=== PATIENT | female | born 1990 | race Caucasian/White ===

== ENCOUNTER 2020-09-03 20:10 | Emergency (ER) | payer MEDICAID, OTHER ==
[2020-09-03] MEDS ORDERED: Ondansetron 4 MG/2 ML SDV IVPUSH ONE (20:29)
[2020-09-03] MEDS ORDERED: Sodium Chloride 0.9% 2.5 ML Syringe FLUSH PRN (20:29)
[2020-09-03] MEDS ORDERED: Sodium Chloride 0.9% 1,000 ML IV ONE (20:29)
[2020-09-03] MEDS ORDERED: Sodium Chloride 0.9% 10 ML Syringe FLUSH PRN (20:29)
--- NOTE | 2020-09-03 20:31 | EDM.PDOC ---
ED HPI GENERAL MEDICAL PROBLEM - General Chief Complaint: General Stated Complaint: DIZZINESS, PASSED OUT Time Seen by Provider: 09/03/20 20:12 Source of Information: Reports: Patient History Limitations: Reports: No Limitations - History of Present Illness INITIAL COMMENTS - FREE TEXT/NARRATIVE: HISTORY AND PHYSICAL: History of present illness: The patient is a 30-year-old female who presents to the emergency room after near syncopal event while taking a shower with her . The patient's states that she had felt normal and had been in the shower for about 15 minutes when her joined her. Her states that she did not lose consciousness but was not acting correctly in the shower. Patient stated that a similar incident happened about 10 days ago and about 10 days before that. She has not sought any medical treatment for it. She states that during the episode she felt extremely hot and became nauseated. She did not vomit. She does have a slight headache but reports that this is a normal headache for her. The patient states that she often gets headaches and has never sought treatment for them. She uses [id number]-[id number] Motrin or Tylenol for her pain. Patient states that she had to 8 ounce bottles of some type of mixed drink over 2 hours about 1 hour prior to her incident. And right before her taking a shower she had a cheeseburger for dinner. The patient states that there is no way she could be because her has a vasectomy. Her last menstrual cycle was July 16, 2020. Patient denies any fever, chills, change in vision. Denies any chest pain, back pain, shortness of breath or cough. Denies any abdominal pain, vomiting, diarrhea, constipation or dysuria. Has not noted any blood in urine or stool. Patient has been eating and drinking appropriately. Review of systems: As per history of present illness and below otherwise all systems reviewed and negative. Past medical history: As per history of present illness and as reviewed below otherwise noncontributory. Surgical history: As per history of present illness and as reviewed below otherwise noncontributory. Social history: See social history for further information Family history: As per history of present illness and as reviewed below otherwise noncontributory. Physical exam: General: Well developed and well nourished. Alert and orientated x 3. Nontoxic in appearance and in no acute distress. Vital signs are stable and have been reviewed by me. Nursing notes were reviewed. HEENT: Atraumatic, normocephalic, pupils equal and reactive bilaterally, negative for conjunctival pallor or scleral icterus, mucous membranes moist, TMs normal bilaterally, throat clear, neck supple, nontender, trachea midline. No drooling or trismus noted. No meningeal signs. No hot potato voice noted. Lungs: Clear to auscultation bilaterally. No wheezes, rales, or rhonchi. Chest nontender. Normal work of breathing, no accessory muscles used. Heart: S1S2, regular rate and rhythm without overt murmur, gallops, or rubs. No JVD. No peripheral edema Abdomen: Soft, nondistended, nontender. Normoactive bowel sounds. Negative for masses or costovertebral tenderness. Pelvis: Stable nontender. Genitourinary/Rectal: Deferred. Skin: Intact, warm, dry. No lesions or rashes noted. Hematologic: No petechiae or purpra. Mucosa appropriate color and normal nail bed color and refill. Extremities: Atraumatic, moves all extremities per self without difficulty or deficits, negative for cords or calf pain. Neurovascular unremarkable. Neuro: Awake, alert, oriented. Cranial nerves II through XII unremarkable. Cerebellum unremarkable. Motor and sensory unremarkable throughout. Exam nonfocal. Psychiatric: Mood and affect are appropriate. Normal thought process. Answering questions appropriately. Notes: *This patient was seen and evaluated during the 2019 SARS-CoV-2 novel coronavirus pandemic period. Community viral transmission is ongoing at time of this encounter and the emergency department is operating under pandemic response procedures. After evaluation and discussion the patient is agreeable to blood work, urinalysis, EKG, chest x-ray, head CT, IV fluids, and Zofran. The CBC is unremarkable. The CMP is unremarkable except for calcium of 8.4. The urine is unremarkable. Chest x-ray IMPRESSION: No evidence of acute pulmonary abnormalities. Head CT IMPRESSION: No acute intracranial hemorrhage or mass effect. The patient's work-up is essentially normal. Due to the fact that the patient's had 3 near syncopal episodes and 30 days I will write a order for the patient to have a [facility] patient tomorrow for 14 days with the results to go to her provider Nima Davila. The patient is agreeable with the discharge plan. I have talked with the patient about today's findings, in addition to providing specific details for plan of care. Reassessment at the time of disposition demonstrates that the patient is in no acute distress. The patient is stable for discharge, counseling was provided and we discussed in great detail signs and symptoms that would prompt them to return to the Emergency Department. Medication, follow up and supportive care measures were reviewed and discussed. Voices understanding and is agreeable to plan of care. Denies any further questions or concerns at this time. Diagnostics: CBC, CMP, EKG, chest x-ray, urinalysis, head CT, Therapeutics: IV Fluids, Zofran Prescription: ZIZIO for 14 days for near syncopal episodes. Results to Dr. Lupillo Davila. Impression: Near syncope Plan: 1. You were evaluated today on an emergent basis. Your episode of near fainting was evaluated by blood work which was normal, a urinalysis which was within normal limits, and EKG which was normal, a chest x-ray which was normal, a head CT which was normal. Due to the fact that you have had 3 of these episodes within the last 30 days I am writing an outpatient order for you to have a monitor for 14 days with the results to go to your provider Lupillo Davila. If you have another episode please return to the emergency department. At this time it is best for you to have people with you at all times. 2. You can alternate Tylenol and ibuprofen as needed for pain and fever management. 3. We encourage you to follow up with your primary care provider and/or recommended specialist in the next few days for re-evaluation and further care/management. 4. If your symptoms should worsen, new symptoms develop or any of the signs and symptoms we discussed should arise please return to the emergency room or call 911 (if needed). Definitive disposition and diagnosis as appropriate pending reevaluation and review of above. - Related Data Allergies Allergy/AdvReac Type Severity Reaction Status Date / Time No Known Allergies Allergy Verified 09/03/20 20:22 Home Meds: Home Meds Omeprazole 40 mg PO DAILY 09/03/20 [History] ED ROS GENERAL - Review of Systems Review Of Systems: Comprehensive ROS is negative, except as noted in HPI. ED EXAM, GENERAL - Physical Exam Exam: See Below (See dictation) Course - Vital Signs Last Recorded V/S: Last Vital Signs Temp 97.2 F 09/03/20 22:04 Pulse 62 09/03/20 22:04 Resp 18 09/03/20 22:04 BP 105/66 09/03/20 22:04 Pulse Ox 97 09/03/20 22:04 - Orders/Labs/Meds Orders: Active Orders 24 hr Category Date Time Status Saline Lock Insert [OM.PC] Stat Oth 09/03/20 20:29 Ordered Labs: Laboratory Tests 09/03/20 09/03/20 09/03/20 Range/Units 20:30 20:30 20:35 WBC 8.29 (4.0-11.0) K/uL RBC 4.67 (4.30-5.90) M/uL Hgb 14.4 (12.0-16.0) g/dL Hct 43.2 (36.0-46.0) % MCV 92.5 (80.0-98.0) fL MCH 30.8 (27.0-32.0) pg MCHC 33.3 (31.0-37.0) g/dL RDW Std Deviation 42.1 (28.0-62.0) fl RDW Coeff of Luis Alfredo 13 (11.0-15.0) % Plt Count 273 (150-400) K/uL MPV 10.00 (7.40-12.00) fL Neut % (Auto) 48.5 (48.0-80.0) % Lymph % (Auto) 42.2 H (16.0-40.0) % Rock % (Auto) 5.1 (0.0-15.0) % Eos % (Auto) 3.7 (0.0-7.0) % Baso % (Auto) 0.5 (0.0-1.5) % Neut # (Auto) 4.0 (1.4-5.7) K/uL Lymph # (Auto) 3.5 H (0.6-2.4) K/uL Rock # (Auto) 0.4 (0.0-0.8) K/uL Eos # (Auto) 0.3 (0.0-0.7) K/uL Baso # (Auto) 0.0 (0.0-0.1) K/uL Nucleated RBC % 0.0 /100WBC Nucleated RBCs # 0 K/uL Sodium (136-145) mmol/L Potassium (3.5-5.1) mmol/L Chloride (98-107) mmol/L Carbon Dioxide (21.0-32.0) mmol/L BUN (7.0-18.0) mg/dL Creatinine (0.6-1.0) mg/dL Est Cr Clr Drug Dosing mL/min Estimated GFR (MDRD) ml/min Glucose (74-106) mg/dL Calcium (8.5-10.1) mg/dL Total Bilirubin (0.2-1.0) mg/dL AST (15-37) IU/L ALT (14-63) IU/L Alkaline Phosphatase (46-116) U/L Total Protein (6.4-8.2) g/dL Albumin (3.4-5.0) g/dL Globulin (2.6-4.0) g/dL Albumin/Globulin Ratio (0.9-1.6) Urine Color YELLOW Urine Appearance SLT CLOUDY Urine pH 5.5 (5.0-8.0) Ur Specific [place] >= 1.030 (1.001-1.035) Urine Protein TRACE H (NEGATIVE) mg/dL Urine Glucose (UA) NEGATIVE (NEGATIVE) mg/dL Urine Ketones NEGATIVE (NEGATIVE) mg/dL Urine Occult Blood NEGATIVE (NEGATIVE) Urine Nitrite NEGATIVE (NEGATIVE) Urine Bilirubin NEGATIVE (NEGATIVE) Urine Urobilinogen 0.2 (<2.0) EU/dL Ur Leukocyte Esterase NEGATIVE (NEGATIVE) U Hyaline Cast (Auto) 0-2 (0-2/LPF) Urine RBC 0-2 (0-2/HPF) Urine WBC 0-2 (0-5/HPF) Ur Epithelial Cells FEW (NONE-FEW) Urine Bacteria FEW (NEGATIVE) Urine Mucus LIGHT (NONE-MOD) Urine HCG, Qual NEGATIVE (NEGATIVE) 09/03/20 Range/Units 20:35 WBC (4.0-11.0) K/uL RBC (4.30-5.90) M/uL Hgb (12.0-16.0) g/dL Hct (36.0-46.0) % MCV (80.0-98.0) fL MCH (27.0-32.0) pg MCHC (31.0-37.0) g/dL RDW Std Deviation (28.0-62.0) fl RDW Coeff of Luis Alfredo (11.0-15.0) % Plt Count (150-400) K/uL MPV (7.40-12.00) fL Neut % (Auto) (48.0-80.0) % Lymph % (Auto) (16.0-40.0) % Rock % (Auto) (0.0-15.0) % Eos % (Auto) (0.0-7.0) % Baso % (Auto) (0.0-1.5) % Neut # (Auto) (1.4-5.7) K/uL Lymph # (Auto) (0.6-2.4) K/uL Rock # (Auto) (0.0-0.8) K/uL Eos # (Auto) (0.0-0.7) K/uL Baso # (Auto) (0.0-0.1) K/uL Nucleated RBC % /100WBC Nucleated RBCs # K/uL Sodium 146 H (136-145) mmol/L Potassium 3.6 (3.5-5.1) mmol/L Chloride 106 (98-107) mmol/L Carbon Dioxide 27.7 (21.0-32.0) mmol/L BUN 10 (7.0-18.0) mg/dL Creatinine 0.8 (0.6-1.0) mg/dL Est Cr Clr Drug Dosing 90.84 mL/min Estimated GFR (MDRD) > 60.0 ml/min Glucose 102 (74-106) mg/dL Calcium 8.4 L (8.5-10.1) mg/dL Total Bilirubin 0.2 (0.2-1.0) mg/dL AST 17 (15-37) IU/L ALT 19 (14-63) IU/L Alkaline Phosphatase 61 (46-116) U/L Total Protein 7.6 (6.4-8.2) g/dL Albumin 4.2 (3.4-5.0) g/dL Globulin 3.4 (2.6-4.0) g/dL Albumin/Globulin Ratio 1.2 (0.9-1.6) Urine Color Urine Appearance Urine pH (5.0-8.0) Ur Specific Lowgap (1.001-1.035) Urine Protein (NEGATIVE) mg/dL Urine Glucose (UA) (NEGATIVE) mg/dL Urine Ketones (NEGATIVE) mg/dL Urine Occult Blood (NEGATIVE) Urine Nitrite (NEGATIVE) Urine Bilirubin (NEGATIVE) Urine Urobilinogen (<2.0) EU/dL Ur Leukocyte Esterase (NEGATIVE) U Hyaline Cast (Auto) (0-2/LPF) Urine RBC (0-2/HPF) Urine WBC (0-5/HPF) Ur Epithelial Cells (NONE-FEW) Urine Bacteria (NEGATIVE) Urine Mucus (NONE-MOD) Urine HCG, Qual (NEGATIVE) Meds: Medications Discontinued Medications Generic Name Dose Route Start Last Admin Trade Name Freq PRN Reason Stop Dose Admin Sodium Chloride 1,000 mls @ 999 mls/hr 09/03/20 20:29 09/03/20 20:54 Normal Saline IV 09/03/20 21:29 999 mls/hr .BOLUS ONE Administration Ondansetron HCl 4 mg 09/03/20 20:29 09/03/20 20:54 Ondansetron 4 Mg/2 Ml Sdv IVPUSH 09/03/20 20:30 4 mg ONETIME ONE Administration Sodium Chloride 10 ml 09/03/20 20:29 Sodium Chloride 0.9% 10 Ml Syringe FLUSH ASDIRECTED PRN Keep Vein Open Sodium Chloride 2.5 ml 09/03/20 20:29 Sodium Chloride 0.9% 2.5 Ml Syringe FLUSH ASDIRECTED PRN Keep Vein Open Departure - Departure Time of Disposition: 21:52 Disposition: Home, Self-Care 01 Condition: Good Clinical Impression: Near syncope - Discharge Information *PRESCRIPTION DRUG MONITORING PROGRAM REVIEWED*: Not Applicable *COPY OF PRESCRIPTION DRUG MONITORING REPORT IN PATIENT DOUG: Not Applicable Instructions: Near-Syncope, [id number] Referrals: PCP,Not In Area [Primary Care Provider] - Forms: ED Department Discharge Additional Instructions: The following information is given to patients seen in the emergency department who are being discharged to home. This information is to outline your options for follow-up care. We provide all patients seen in our emergency department with a follow-up referral. The need for follow-up, as well as the timing and circumstances, are variable depending upon the specifics of your emergency department visit. If you don't have a primary care physician on staff, we will provide you with a referral. We always advise you to contact your personal physician following an emergency department visit to inform them of the circumstance of the visit and for follow-up with them and/or the need for any referrals to a consulting specialist. The emergency department will also refer you to a specialist when appropriate. This referral assures that you have the opportunity for follow-up care with a specialist. All of these measure are taken in an effort to provide you with optimal care, which includes your follow-up. Under all circumstances we always encourage you to contact your private physician who remains a resource for coordinating your care. When calling for follow-up care, please make the office aware that this follow-up is from your recent emergency room visit. If for any reason you are refused follow-up, please contact the [facility] Emergency Department at and asked to speak to the emergency department charge nurse. [facility] [address] [place] [address] [place] [address] Plan: 1. You were evaluated today on an emergent basis. Your episode of near fainting was evaluated by blood work which was normal, a urinalysis which was within normal limits, and EKG which was normal, a chest x-ray which was normal, a head CT which was normal. Due to the fact that you have had 3 of these episodes within the last 30 days I am writing an outpatient order for you to have a monitor for 14 days with the results to go to your provider Lupillo Davila. If you have another episode please return to the emergency department. At this time it is best for you to have people with you at all times. 2. You can alternate Tylenol and ibuprofen as needed for pain and fever management. 3. We encourage you to follow up with your primary care provider and/or recommended specialist in the next few days for re-evaluation and further care/management. 4. If your symptoms should worsen, new symptoms develop or any of the signs and symptoms we discussed should arise please return to the emergency room or call 911 (if needed). Sepsis Event Note (ED) - Evaluation Sepsis Screening Result: No Definite Risk - Focused Exam Vital Signs: Vital Signs Temp Pulse Resp BP Pulse Ox 09/03/20 22:04 97.2 F 62 18 105/66 97 09/03/20 21:34 65 18 110/66 100 09/03/20 20:17 97.8 F 76 14 126/65 98 - My Orders Last 24 Hours: My Active Orders 09/03/20 20:29 Saline Lock Insert [OM.PC] Stat - Assessment/Plan Last 24 Hours: My Active Orders 09/03/20 20:29 Saline Lock Insert [OM.PC] Stat
--- NOTE | 2020-09-03 20:47 | PCM.SN.2 ---
- Free Text/Narrative Note: EKG normal sinus rhythm. Heart rate 71. [place] 36. DC interval 123. QT duration 423. QRS normal. ST and T normal. No prior for comparison. Impression normal.
[2020-09-03 21:03] LABS: BLOOD UREA NITROGEN,BUN 10 mg/dL (7.0-18.0); CARBON DIOXIDE,CO2 27.7 mmol/L (21.0-32.0); CHLORIDE,CL 106 mmol/L (98-107); GLUCOSE RANDOM 102 mg/dL (74-106); POTASSIUM,K 3.6 mmol/L (3.5-5.1); SODIUM,NA 146 mmol/L (136-145)
--- NOTE | 2020-09-03 21:43 | CT ---
INDICATION: Near syncope. Chronic headache. TECHNIQUE: Noncontrast CT images were acquired through the brain. COMPARISON: None. FINDINGS: The ventricles and sulci are within normal limits for patient age. No mass effect or midline shift. The askew-white differentiation is maintained. No acute intracranial hemorrhage or pathologic extra-axial fluid collection. The globes are symmetric. The calvarium is intact. The visualized paranasal sinuses and mastoid air cells are clear. IMPRESSION: No acute intracranial hemorrhage or mass effect. Please note that all CT scans at this facility use dose modulation, iterative reconstruction, and/or weight-based dosing when appropriate to reduce radiation dose to as low as reasonably achievable. Dictated by Jose Humphreys MD @ 09/03/2020 9:42:[address] oJse Humphreys @ Sep 03 2020 9:42PM
--- NOTE | 2020-09-03 21:43 | CR ---
INDICATION: Near syncope. FINDINGS: PA and lateral chest x-rays show a normal cardiac silhouette. The lungs show no focal pulmonary opacities. Sharp pleural margins. No pneumothorax. IMPRESSION: No evidence of acute pulmonary abnormalities. Dictated by Kwaku Alonzo MD @ 09/03/2020 9:40:[address] Kwaku Alonzo @ Sep 03 2020 9:40PM
== END 2020-09-03 22:05 | disposition home or self-care (01) ==
LOC: MW.ED 20:10
DX: R55 Syncope and collapse (principal); Z79.899 Other long term (current) drug therapy
CPT/HCPCS: 36415; 70450; 71046; 80053; 81001; 81025; 85025; 93005; 96374; 99284; J2405; J7030; 93010; 99283

== ENCOUNTER → 2022-02-08 | Day surgery (SDC) | payer MEDICAID | LOC: MW.SDS 06:00 | PROVIDERS: ATTEND Surgery | DX: R10.12 Left upper quadrant pain (principal); R10.13 Epigastric pain; Z53.09 Procedure and treatment not carried out because of other contraindication; Z79.899 Other long term (current) drug therapy; Z98.890 Other specified postprocedural states; Z85.3 Personal history of malignant neoplasm of breast | CPT/HCPCS: 81025 ==

== ENCOUNTER 2022-05-06 06:25 | Day surgery (SDC) | payer MEDICAID ==
[~2022-05-06 06:25] MED LIST: Lactated Ringers 1,000 ML IV SCH; cefOXitin 2 GM in Premix Bag 1 BAG IV ONE
[2022-05-06] MEDS ORDERED: Scopolamine 1.5 MG Transdermal Patch TOP ONE (06:30)
[2022-05-06] MEDS ORDERED: Ropivacaine 0.5% 5 MG/ML 30 ML SDV ONE (07:25)
[2022-05-06] MEDS ORDERED: Dexamethasone 4 MG/ML 5 ML MDV ONE (07:29)
[2022-05-06] MEDS ORDERED: Ketorolac 30 MG/ML SDV ONE (07:29)
[2022-05-06] MEDS ORDERED: Sugammadex Sodium 200 MG/2 ML VIAL ONE (07:29)
[2022-05-06] MEDS ORDERED: Rocuronium Bromide 50 MG/5 ML Syringe ONE (07:29)
[2022-05-06] MEDS ORDERED: Ondansetron 4 MG/2 ML SDV ONE (07:29)
[2022-05-06] MEDS ORDERED: Propofol 200 MG/20 ML SDV ONE (07:30)
[2022-05-06] MEDS ORDERED: fentaNYL 100 MCG/2 ML SDV ONE (07:30)
[2022-05-06] MEDS ORDERED: ceFAZolin 1 GM Vial ONE (07:35)
[2022-05-06] MEDS ORDERED: Bupivacaine 0.5% 30 ML SDV ONE (07:35)
[2022-05-06] MEDS ORDERED: Water For Injection, Sterile 20 ML ONE (07:35)
[2022-05-06] MEDS ORDERED: Dexmedetomidine 200 MCG/2 ML SDV ONE (07:35)
[2022-05-06] MEDS ORDERED: fentaNYL 50 MCG/ML SDV IVPUSH PRN (07:51)
[2022-05-06] MEDS ORDERED: Naloxone 0.4 MG/ML SDV IVPUSH PRN (07:51)
[2022-05-06] MEDS ORDERED: Ondansetron 4 MG/2 ML SDV IVPUSH PRN (07:51)
[2022-05-06] MEDS ORDERED: HYDROmorphone 1 MG/ML Syringe IVPUSH PRN (07:51)
[2022-05-06] MEDS ORDERED: Morphine 2 MG/ML SYRINGE IVPUSH PRN (07:51)
[2022-05-06] MEDS ORDERED: Metoclopramide 10 MG/2 ML SDV IVPUSH PRN (07:51)
[2022-05-06] MEDS ORDERED: Albuterol 0.083% 2.5 MG/3 ML Neb Soln NEB PRN (07:51)
[2022-05-06] MEDS ORDERED: propofoL 100 ML ONE (08:04)
[2022-05-06] MEDS ORDERED: Morphine Sulfate 10mg/ml SDV ONE (08:09)
[2022-05-06] MEDS ORDERED: Phenylephrine 1% 10 MG/ML SDV ONE (08:21)
[2022-05-06] MEDS ORDERED: Indocyanine Green 25 MG SDV ONE (08:29)
[2022-05-06] MEDS ORDERED: Acetaminophen/HYDROcodone 325-5 MG Tab PO PRN (09:53)
[2022-05-06] MEDS ORDERED: Morphine 4 MG/ML Syringe IVPUSH PRN (09:53)
[2022-05-06] MEDS ORDERED: Lactated Ringers 1,000 ML IV SCH (10:00)
== END 2022-05-06 11:35 | disposition home or self-care (01) ==
LOC: MW.SDS 06:25
PROVIDERS: ATTEND Surgery
DX: K80.12 Calculus of gallbladder with acute and chronic cholecystitis without obstruction (principal); K21.9 Gastro-esophageal reflux disease without esophagitis; F41.9 Anxiety disorder, unspecified; Z87.891 Personal history of nicotine dependence; Z98.890 Other specified postprocedural states; Z79.899 Other long term (current) drug therapy
CPT/HCPCS: 47562; 81025; J0131; J1100; J1885; J2270; J2370; J2704; J2795; J3010; J3490; J7030; J7120; 00790; 64488; J0690; J2405